=== PATIENT | female | born 1960 | race Caucasian/White ===

== ENCOUNTER 2019-01-25 05:48 | Emergency (ER) | payer MEDICAID ==
[~2019-01-25] VITALS: Ht 152.4 cm; Wt 73.4 kg
[~2019-01-25 05:48] MED LIST: [UNRECOGNIZED DRUG - REMARK]
[2019-01-25 05:57] VITALS: BP 172/86; PULSE 94; RESP 18; Ht 152.4 cm; Wt 73.4 kg
[2019-01-25] MEDS ORDERED: LORAZEPAM 1 MG TAB PO ONE (06:30)
--- NOTE | 2019-01-25 07:09 | ERD ---
ER Documentation Chief Complaint Chief Complaint feels gen body weakness after taking indomethacin for painaround 4am HPI 58-year-old female presents with complaint of anxiety and generalized body weakness after taking indomethacin for generalized muscle aches around 4 AM. Denies any chest pain, shortness of breath, fevers, chills, wheezing, rashes, stridor, respiratory distress. States she is a history of breast cancer. Denies other medical problems. Denies any allergies. ROS All systems reviewed and are negative except as per history of present illness. Medications Home Meds Reported Medications [Unk Atb For Cough] No Conflict Check 06/15/13 Allergies Allergies: Coded Allergies: No Known Drug Allergies (Verified Allergy, 06/15/13) PMhx/Soc History of Surgery: Yes (LEFT MASTECTOMY) Anesthesia Reaction: No Hx Neurological Disorder: No Hx Respiratory Disorders: No Hx Cardiac Disorders: No Hx Psychiatric Problems: No Hx Miscellaneous Medical Probl: Yes (LEFT BREAST CA) Hx Alcohol Use: No Hx Substance Use: No Hx Tobacco Use: No Smoking Status: Never smoker FmHx Family History: No diabetes, No coronary disease, No other Physical Exam Vitals Vital Signs Date Temp Pulse Resp B/P (MAP) Pulse Ox O2 O2 Flow FiO2 Time Delivery Rate 01/25/19 98.6 94 18 172/86 97 05:57 (114) Physical Exam Const: No acute distress Head: Atraumatic Eyes: Normal Conjunctiva ENT: Normal External Ears, Nose and Mouth. Airways patent and clear without any tongue edema or angioedema. Neck: Full range of motion. No meningismus. Resp: Clear to auscultation bilaterally Cardio: Regular rate and rhythm, no murmurs Abd: Soft, non tender, non distended. Normal bowel sounds Skin: No petechiae or rashes Back: No midline or flank tenderness Ext: No cyanosis, or edema Neur: Awake and alert Psych: Normal Mood and Affect Results 24 hrs Current Medications Medications Dose Sig/Nick Start Time Status Last (Trade) Ordered Route PRN Stop Time Admin Dose Reason Admin Lorazepam 1 mg ONCE ONCE 01/25/19 DC 01/25/19 (Ativan) PO 06:30 06:40 01/25/19 06:31 Procedures/MDM EKG: Rate/Rhythm: Normal Sinus Rhythm QRS, ST, T-waves: No changes consistent w/ acute ischemia Impression: No evidence of ischemia or arrhythmia MDM: Patient appears to have anxiety related to the indomethacin that she took however there is no indication that she is having any kind of allergic reaction or anaphylaxis. Patient was given 1 mg of lorazepam in the ER and it helped wi th her symptoms. In addition her EKG was within normal limits. At no time during the ER course did patient exhibit signs of anaphylaxis, respiratory distress, or angioedema. Patient's vitals were WNL throughout the ER course at time of discharge. Patient discharged with strict ER precauctions. Patient advised to follow up with PMD. All questions answered at discharge. Departure Diagnosis: Primary Impression: Allergy or intolerance to drug Condition: JORDI Lopez Jan 25, 2019 07:09
[2019-01-25] MEDS ORDERED: LORA1TAB PO (07:32)
== END 2019-01-25 07:37 | disposition home or self-care (01) ==
LOC: FTE 05:48
DX: R53.1 Weakness (principal); T88.7XXA Unspecified adverse effect of drug or medicament, initial encounter; Y82.9 Unspecified medical devices associated with adverse incidents; Z85.3 Personal history of malignant neoplasm of breast
CPT/HCPCS: 93005; Z7502; Z7610